=== PATIENT | male | born 1960 | race Two or more races ===

== ENCOUNTER 2018-01-25 21:56 | Emergency (ER) | payer BC ==
[~2018-01-25] VITALS: Ht 170.2 cm; Wt 102.1 kg
[2018-01-25 22:15] VITALS: BP 141/89
[2018-01-26 00:48] LABS: APPEARANCE,URINE CLEAR (CLEAR); BILIRUBIN,URINE NEGATIVE (NEGATIVE); BLOOD, URINE NEGATIVE Ery/uL (NEGATIVE); COLOR,URINE YELLOW (YELLOW); KETONES,URINE NEGATIVE (NEGATIVE); LEUKOCYTE ESTERASE ,URINE NEGATIVE (NEGATIVE); NITRITE, URINE NEGATIVE (NEGATIVE); PROTEIN,URINE NEGATIVE (NEGATIVE); UGLUCOSE NEGATIVE (NEGATIVE); UROBILINOGEN,URINE 0.2 EU/dL (0.2)
== END 2018-01-26 01:25 | disposition home or self-care (01) ==
LOC: ER 22:06
DX: M54.5 Low back pain (principal); I10 Essential (primary) hypertension; I25.2 Old myocardial infarction; I25.10 Atherosclerotic heart disease of native coronary artery without angina pectoris; Z95.818 Presence of other cardiac implants and grafts
CPT/HCPCS: 81001; 99283; A4606; Z7610; 81000-TC